=== PATIENT | female | born 1980 | race Caucasian/White ===

== ENCOUNTER → 2017-03-12 | Day surgery (SDC) | payer OTHER ==
[~2017-03-12] MED LIST: AMOXIL50 MG/ML PO; CLINDAMYCIN HC300 MG PO; FLEXERIL10 MG PO; LORTAB 10-5001 EACH PO; MEDROL DOSEPAK4 MG DOB; ORTHO MICRONO0.35 MG PO; ORUDIS75 M1 DOB; ORUDIS75 M1 PO; VICODIN 5/500 T1 TAB PO
--- NOTE | ~2017-03-12 | OR ---
Unit #: [id number] #: [id number] Patient: KATIE RENNER [id number] [address] [address] [id number] Abdulaziz MR#: [id number] NAME: KATIE RENNER ROOM: 21784 Date of Procedure: 03/12/2017 Admission Date: 03/12/2017 Surgeon: Indio Estevez M.D. : 1980 Attending Physician: Lazaro Holm M.D. Primary Care Physician: [facility]. OPERATIVE REPORT PREOPERATIVE DIAGNOSIS Appendicitis. POSTOPERATIVE DIAGNOSIS Appendicitis. PROCEDURE PERFORMED Laparoscopic appendectomy. PERSONNEL MONITOR None. ANESTHESIA General anesthesia. ESTIMATED BLOOD LOSS Minimal. IV FLUIDS 500 crystalloid. COMPLICATIONS None. INDICATIONS FOR PROCEDURE The patient is a 36-year-old with a 3-day history of right lower quadrant abdominal pain. CT scan is consistent with appendicitis. DESCRIPTION OF PROCEDURE The patient was taken to the operating theater and placed in the supine position. General anesthesia was induced. The abdomen was prepped and draped. A 5-mm Optiview trocar was placed in the left of the umbilicus. The abdomen was insufflated to 15 mmHg with CO2. Under direct vision, I placed a right lower quadrant 10 mm and left lower quadrant 5 mm. General inspection of the abdomen revealed acute appendicitis with inflammation of the right lower quadrant. I mobilized the appendix with blunt dissection. I was able to fire a SUSANNE stapler across the mesoappendix as well as the appendix thus amputating the appendix. I placed it into an Endobag and then delivered via the 10-mm pouch. Hemostasis was adequate. I closed the fascia with 0 Vicryl and the skin with 4-0 Vicryl. The patient tolerated the procedure well and sent to the recovery room in good condition. Unit #: [id number] #: [id number] Patient: KATIE RENNER Dictated by... Natalya Davalos/gomezl TD: 03/13/2017 00:58 JOB #: [id number] OPERATIVE REPORT Page 1 of 1 X Indio Estevez MD PROCEDURE OPERATIVE NOTE
--- NOTE | ~2017-03-12 | CT2 ---
[facility] RADIOLOGY TEXT RESULTS PATIENT: KATIE RENNER LOCATION: [facility] : [birth year] UNIT #: [id number] AGE: [address]: Lazaro Holm SEX: F ORDER DR: [id number] [facility] [address]. [place], [place] [address] [id number] MR#: [id number] Acc #: [id number] NAME: KATIE RENNER : 1980 SEX: F STUDY DATE/TIME: 03/12/2017 5:19 UNIT: ANN ROOM: STUDY DESCRIPTION: CT Abd and Pelv W Cont Attending Physician: Indio Thompson P.A.-C. Ordering Physician: Indio Thompson P.A.-C. Primary Care Physician: [facility] IMAGING REPORT This report is preliminary unless electronic signature is present EXAM CT abdomen and pelvis INDICATION Right lower quadrant abdominal pain. Nausea. Fever. TECHNIQUE CT of the abdomen and pelvis with 100 mL Isovue-370 IV contrast. Coronal and sagittal reconstructions were obtained. This CT examination was performed with one or more of the following radiation dose reduction techniques: automatic exposure control, adjustment of mA and/or kV according to patient size, and iterative reconstruction. COMPARISON None available. FINDINGS The patient has acute appendicitis. The appendix measures up to 2.1 cm in diameter. Irregularity of the appendiceal wall suggests a microperforation. There is moderate inflammation around the appendix. No loculated fluid collections or abscess. There is a small amount of free fluid in the pelvis. The solid abdominal organs and the gallbladder are within normal limits. No small bowel obstruction. PELVIS: The uterus and ovaries are within normal limits. The bladder is unremarkable. No acute osseous abnormalities. IMPRESSION [facility] RADIOLOGY TEXT RESULTS PATIENT: KATIE RENNER LOCATION: [facility] : 78 UNIT #: [id number] AGE: [address]: Lazaro Holm SEX: F ORDER DR: Acute appendicitis. STAT * RESULT Dictated by... Christopher Norris M.D. THIS IS AN ELECTRONICALLY VERIFIED REPORT Christopher Norris M.D. at 03/15/2017 2:12 PM DOMINICK/walter TD: 03/12/2017 05:56 JOB #: [id number] MEDICAL IMAGING REPORT Page 1 of 1 COPY
--- NOTE | ~2017-03-12 | CO ---
Unit #: [id number] #: [id number] Patient: KATIE RENNER [id number] [address] [place], [place] [address] [id number] MR#: [id number] NAME: KATIE RENNER ROOM: 14234 Age: 36 Sex: F Admission Date: 03/12/2017 : 1980 Attending Physician: Lazaro Holm M.D. Primary Care Physician: [facility]. Consultation Date: 03/12/2017 CONSULTATION REPORT BRIEF HISTORY The patient is a 36-year-old lady who presents with a 3-day history of periumbilical and now right lower quadrant abdominal pain. Has had some nausea. No vomiting. No diarrhea. PAST HISTORY Caesarian section. MEDICATIONS Flexeril, Medrol, Vicodin. SOCIAL HISTORY Does smoke 1/2 pack per day. No alcohol. FAMILY HISTORY Negative for GI malignancy. REVIEW OF SYSTEMS No cardiopulmonary complaints at this time. Ten systems reviewed and negative. PHYSICAL EXAMINATION GENERAL: She is awake, alert. VITAL SIGNS: Low-grade temperature of 99.8. HEENT: Unremarkable. NECK: Neck is supple. No JVD. Trachea midline. LUNGS: Clear to auscultation. Bilateral breath sounds are symmetric. CARDIOVASCULAR: Regular rate and rhythm. ABDOMEN: Her abdomen is soft. It is tender in the right lower quadrant with point tenderness at McBurney point. No rebound. No masses palpable or hernias. EXTREMITIES: No clubbing, cyanosis or edema. DIAGNOSTIC STUDIES LABS: Labs show a white count of 11.9. Chemistry is normal. IMAGING: CT scan shows inflammation of the appendix. ASSESSMENT Appendicitis. PLAN Recommend laparoscopic appendectomy. Discussed risks and benefits in details and will proceed. Unit #: [id number] #: [id number] Patient: KATIE RENNER Dictated by... Natalya Davalos/laura TD: 03/12/2017 08:20 JOB #: [id number] CONSULTATION REPORT Page 1 of 1 X Indio Estevez MD X CONSULTATION REPORT
[2017-03-12 04:08] LABS: URINE SOURCE CLEAN CATCH
[2017-03-12 04:13] LABS: BASOPHIL# 0.1 X10e3 (0-0.3); BASOPHIL% 0.4 % (0-2.5); EOSINOPHIL# 0.1 X10e3 (0-0.7); HEMATOCRIT 37.5 % (35.0-45.0); HEMOGLOBIN 12.3 gm/dL (12.0-16.0); LYMPHOCYTE% 8.6 % (17.0-45.0); MEAN CELL VOLUME 84.5 FL (83-96); MEAN CORPUSCULAR HEMOGLOBIN 27.6 PG (28-34); MEAN CORPUSCULAR HGB CONC 32.7 g/dL (30-36); MEAN PLATELET VOLUME 8.4 FL (6.5-11.5); MONOCYTE# 0.6 X10e3 (0-1.0); MONOCYTE% 5.4 % (3.0-12.0); NEUTROPHIL# 10.1 X10e3 (1.5-7.1); NEUTROPHIL% 84.6 % (40-75); PLATELET COUNT 317 X10e3 (140-420); RED BLOOD COUNT 4.44 X10e (3.90-5.30); RED CELL DISTRIBUTION WIDTH 13.9 % (11.0-15.5); WHITE BLOOD COUNT 11.9 X10e3 (4.0-10.5)
[2017-03-12 04:13] LABS: URINE APPEARANCE CLEAR; URINE BILIRUBIN NEG (NEG); URINE BLOOD 3+ (NEG); URINE COLOR YELLOW; URINE GLUCOSE NEG (NEG); URINE KETONE NEG (NEG); URINE LEUKOCYTE ESTERASE NEG (NEG); URINE NITRATE NEG (NEG); URINE PH 5.5 (5-8); URINE PROTEIN TRACE (NEG); URINE SPECIFIC GRAVITY 1.018 (1.003-1.035); URINE UROBILINOGEN 0.2 MG/DL (NEG)
[2017-03-12 04:15] LABS: DIFF IND NO
[2017-03-12 04:16] LABS: CULTURE INDICATED? YES; URBCS1 AUWI 50-100 /[HPF] (0-2); URINE BACTERIA AUWI 1+ (NEGATIVE); URINE SQUAMOUS EPITHELIAL CELL OCC /[HPF]
[2017-03-12 04:43] LABS: ALBUMIN SERUM 4.3 g/dL (3.5-5.0); BILIRUBIN, DIRECT 0.1 mg/dL (0.0-0.2); BILIRUBIN,INDIRECT 0.4 mg/dL (0.0-0.9); BILIRUBIN,TOTAL 0.5 mg/dL (0.2-2.0); CALCIUM SERUM 8.9 mg/dL (8.4-10.2); CREATININE SERUM 0.7 mg/dL (0.6-1.4); GLOM FILT RATE Estimated 110.7 mL/min (>60); POTASSIUM 3.5 mmol/L (3.5-5.1); PROTEIN TOTAL SERUM 8.1 g/dL (6.0-8.3)
== END | disposition home or self-care (01) ==
LOC: CED 03:21 → CEDOF 06:05 → CED 06:05 → CEDOF 06:05 → CED 06:20 → CSUR 11:35
PROVIDERS: Physician Assistant
DX: K35.3 Acute appendicitis with localized peritonitis (principal); K66.0 Peritoneal adhesions (postprocedural) (postinfection); L93.0 Discoid lupus erythematosus; E66.9 Obesity, unspecified; Z68.35 Body mass index [BMI] 35.0-35.9, adult; Z87.891 Personal history of nicotine dependence; Z88.1 Allergy status to other antibiotic agents; Z88.6 Allergy status to analgesic agent; Z91.040 Latex allergy status; Z79.899 Other long term (current) drug therapy; Z79.891 Long term (current) use of opiate analgesic; Z98.890 Other specified postprocedural states
CPT/HCPCS: 36415; 74177; 80048; 80076; 81003; 83690; 84703; 85025; 87086; 88304; 96361; 96374; 96375; 99285; J0330; J1100; J1170; J1885; J2250; J2405; J2543; J2710; J3010; Q9967